=== PATIENT | female | born 1970 | race American Indian/Alaskan Native ===

== ENCOUNTER 2017-01-01 21:35 | Inpatient (IN) | payer MEDICAID ==
[2017-01-01 22:00] VITALS: BMI 27.3
[2017-01-01] MEDS ORDERED: Oxycodone/Acetaminophen 5/325 mg Tab PO STA (22:10)
[2017-01-01] MEDS ORDERED: Oxycodone/Acetaminophen 5/325 mg Tab ONE (22:16)
[2017-01-01] MEDS ORDERED: TDAP Vaccine 0.5 mL Syr IM ONE (22:26)
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
[2017-01-01] MEDS ORDERED: Lidocaine/Epi 1% 1:100000 20 ML IJ ONE (23:24)
[2017-01-01] MEDS ORDERED: Morphine 4 mg/ml ISec IVP STA (23:26)
[2017-01-01] MEDS ORDERED: ceFAZolin 1 gm in NS 1 GM/100 ML BAG IVPB STA (23:31)
[2017-01-02] MEDS ORDERED: Lidocaine/Epi 1% 1:100000 20 ML IJ STA (00:26)
[2017-01-02 00:39] LABS: ADD MANUAL DIFF? NO
[2017-01-02 00:50] LABS: BASO # 0.01 K/mm3 (0.0-2.0); BASO % 0.1 % (0.0-3.0); EOS # 0.1 (0.0-0.7); EOS % 0.7 % (1.5-5.0); GRAN # 5.85 (1.4-6.5); GRAN % 64.1 % (50.0-68.0); HEMATOCRIT 36.1 % (36.0-48.0); LYMPH # 2.5 (1.2-3.4); LYMPH % 27.5 % (22.0-35.0); MEAN CELL VOLUME 72.9 fL (80.0-105.0); MEAN CORPUSCULAR HEMOGLOBIN 25.9 pg (25.0-35.0); MEAN CORPUSCULAR HGB CONC 35.5 g/dl (31.0-37.0); MEAN PLATELET VOLUME 9.9 fl (7.0-11.0); MONO # 0.7 (0.1-0.6); MONO % 7.6 % (1.0-6.0); PLATELET COUNT 220 10^3/uL (120.0-450.0); RED CELL DISTRIBUTION WIDTH 15.6 % (11.5-14.5); WHITE BLOOD COUNT 9.1 10^3/ul (4.5-11.0)
[2017-01-02 00:53] LABS: ALKALINE PHOSPHATASE 86 U/L (38-133); ALT/SGPT 38 U/L (7-56); AST/SGOT 25 U/L (15-39); BILIRUBIN,TOTAL 0.4 mg/dL (0.2-1.3); BLOOD UREA NITROGEN 10 mg/dL (7-21); CALCIUM 9.1 mg/dL (8.4-10.5); CARBON DIOXIDE 22 mmol/L (21-33); CHLORIDE 108 mmol/L (98-107); GFR AFRICAN-AMERICAN > 60; GLUCOSE,RANDOM 94 mg/dL (70-110); POTASSIUM 3.7 mmol/L (3.6-5.0); SODIUM 137 mmol/L (132-148); TOTAL PROTEIN 7.7 g/dL (5.8-8.3)
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
[2017-01-02] MEDS ORDERED: Albuterol 0.5% Inhal Sol (2.5 mg/0.5 ml) UD IH PRN (01:34)
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
[2017-01-02] MEDS: ceFAZolin 1 gm in NS 1 GM/100 ML BAG IVPB SCH ×3 (06:38→23:08)
[2017-01-02 08:01] LABS: ADD MANUAL DIFF? NO
[2017-01-02 08:09] LABS: BASO # 0.02 K/mm3 (0.0-2.0); BASO % 0.3 % (0.0-3.0); EOS # 0.2 (0.0-0.7); EOS % 2.3 % (1.5-5.0); GRAN % 52.1 % (50.0-68.0); LYMPH # 2.5 (1.2-3.4); LYMPH % 34.5 % (22.0-35.0); MEAN CORPUSCULAR HEMOGLOBIN 25.8 pg (25.0-35.0); MEAN CORPUSCULAR HGB CONC 35.3 g/dl (31.0-37.0); MEAN PLATELET VOLUME 9.9 fl (7.0-11.0); MONO # 0.8 (0.1-0.6); MONO % 10.8 % (1.0-6.0); PLATELET COUNT 216 10^3/uL (120.0-450.0); RED CELL DISTRIBUTION WIDTH 15.6 % (11.5-14.5); WHITE BLOOD COUNT 7.3 10^3/ul (4.5-11.0)
[2017-01-02 08:21] LABS: BLOOD UREA NITROGEN 12 mg/dL (7-21); CALCIUM 8.8 mg/dL (8.4-10.5); CARBON DIOXIDE 22 mmol/L (21-33); CHLORIDE 107 mmol/L (95-110); GFR AFRICAN-AMERICAN > 60; GLUCOSE,RANDOM 94 mg/dL (70-110); POTASSIUM 3.4 mmol/L (3.6-5.0); SODIUM 137 mmol/L (132-148)
[2017-01-03] MEDS: ceFAZolin 1 gm in NS 1 GM/100 ML BAG IVPB SCH ×3 (05:50→22:29)
--- NOTE | 2017-01-03 07:23 | CP.PCM.PN ---
<Jillian Avelar - Last Filed: 01/03/17 10:50> Subjective - Date & Time of Evaluation Date of Evaluation: 01/03/17 Time of Evaluation: 09:30 - Subjective Subjective: Pt was seen and examined at bedside. No acute complaints at this time. No acute events overnight as per Nursing staff. Pt is tolerating diet, is ambulating and is moving bladder regulalrly. Pt has not had a bm yet however is passing flatus. Pt has pain associated with the left arm laceration, however it is under control under current pain management. Pt denied fever, chills, sob, chest pains, palpitations, abdominal pains, n/v/d/c or urinary symptoms. Objective - Vital Signs/Intake and Output Vital Signs (last 24 hours): Temp Pulse Resp BP Pulse Ox 98.6 F 62 19 123/79 98 01/02/17 18:00 01/02/17 18:00 01/02/17 18:00 01/02/17 18:00 01/02/17 18:00 Intake and Output: 01/03/17 01/03/17 06:59 18:59 Intake Total 420 Balance 420 - Medications Medications: Current Medications Acetaminophen (Tylenol 325mg Tab) 650 mg PO Q6H PRN PRN Reason: Fever >100.4 F Last Admin: 01/03/17 00:16 Dose: 650 mg Albuterol Sulfate (Albuterol 0.5% Inhal Opal (2.5 Mg/0.5 Ml) Ud) 2.5 mg IH [id number] PRN PRN Reason: SOB Famotidine (Pepcid) 20 mg PO BID [facility] [place] Last Admin: 01/02/17 18:17 Dose: 20 mg Cefazolin Sodium (Ancef 1gm In Ns) 1 gm in 100 mls @ 100 mls/hr IVPB Q8 [facility] [place] [place] Last Admin: 01/03/17 05:50 Dose: 100 mls/hr Ibuprofen (Motrin Tab) 600 mg PO Q6H PRN PRN Reason: Pain, Mild (1-3) Last Admin: 01/02/17 04:00 Dose: 600 mg Nicotine (Nicoderm Cq) 1 patch TD DAILY [facility] [place] Last Admin: 01/02/17 09:51 Dose: 1 patch Tramadol HCl (Ultram) 50 mg PO TID [facility] [place] Last Admin: 01/02/17 18:17 Dose: 50 mg - Labs Labs: 01/02/17 07:45 01/02/17 07:45 - Constitutional Appears: Well, No Acute Distress - Head Exam Head Exam: ATRAUMATIC, NORMAL INSPECTION, NORMOCEPHALIC - Eye Exam Eye Exam: EOMI, Normal appearance, PERRL Pupil Exam: NORMAL ACCOMODATION, PERRL - ENT Exam ENT Exam: Mucous Membranes Moist, Normal Exam - Neck Exam Neck Exam: Full ROM, Normal Inspection. absent: Lymphadenopathy - Respiratory Exam Respiratory Exam: Clear to Ausculation Bilateral, NORMAL BREATHING PATTERN - Cardiovascular Exam Cardiovascular Exam: REGULAR RHYTHM, +S1, +S2. absent: Murmur - GI/Abdominal Exam GI & Abdominal Exam: Soft, Normal Bowel Sounds. absent: Tenderness - Exam External exam: Lacerations (left arm, dressing CDI) - Extremities Exam Extremities Exam: Calf Tenderness - Back Exam Back Exam: NORMAL INSPECTION - Neurological Exam Neurological Exam: Alert, Awake, CN II-XII Intact, Normal Gait, Oriented x3 - Psychiatric Exam Psychiatric exam: Normal Affect, Normal Mood - Skin Skin Exam: Dry, Intact, Normal Color, Warm Assessment and Plan - Assessment and Plan (Free Text) Assessment: 46 F with PMHx of asthma admitted for a laceration of her left arm. Laceration of L Arm -Surgery, Dr. Garcia consulted, sutures in place, packing removed, dressing CDI, possible further sutures prior to dc - No motor or sensory deficits noted - Abx, cefazolin - analgesia Asthma -not in acute exacerbation -albuterol PRN Hypokalemia - Supplemented Tobacco abuse - counselled on smoking cessation - nicotine patch offered Proph -SCD, OOB encouraged -Pepcid -Regular Diet Seen reviewed and discussed with attending <Ru Rousseau - Last Filed: 01/03/17 16:50> Objective - Vital Signs/Intake and Output Vital Signs (last 24 hours): Temp Pulse Resp BP Pulse Ox 98.0 F 62 17 133/85 100 01/03/17 06:00 01/03/17 06:00 01/03/17 06:00 01/03/17 06:00 01/03/17 06:00 - Medications Medications: Current Medications Acetaminophen (Tylenol 325mg Tab) 650 mg PO Q6H PRN PRN Reason: Fever >100.4 F Last Admin: 01/03/17 00:16 Dose: 650 mg Albuterol Sulfate (Albuterol 0.5% Inhal Opal (2.5 Mg/0.5 Ml) Ud) 2.5 mg IH [id number] PRN PRN Reason: SOB Famotidine (Pepcid) 20 mg PO BID [facility] [place] Last Admin: 01/03/17 09:36 Dose: 20 mg Cefazolin Sodium (Ancef 1gm In Ns) 1 gm in 100 mls @ 100 mls/hr IVPB Q8 RADHA Last Admin: 01/03/17 13:47 Dose: 100 mls/hr Ibuprofen (Motrin Tab) 600 mg PO Q6H PRN PRN Reason: Pain, Mild (1-3) Last Admin: 01/02/17 04:00 Dose: 600 mg Nicotine (Nicoderm Cq) 1 patch TD DAILY [facility] [place] Last Admin: 01/03/17 09:37 Dose: 1 patch Tramadol HCl (Ultram) 50 mg PO TID [facility] [place] Last Admin: 01/03/17 13:47 Dose: 50 mg Attending/Attestation - Attestation I have personally seen and examined this patient.: Yes I have fully participated in the care of the patient.: Yes I have reviewed all pertinent clinical information, including history, physical exam and plan: Yes Notes (Text): I have seen and examined patient at bedside. Agree with the note above with the following additions/ exceptions: This is 46 year old female with laceration of left arm s/p wound closure. She needs to stay for IV antibiotic x1 more day and for possible further wound closure/ suture as per surgery team. Will change the patient status to inpatient. Tobacco cessation counselling provided. Her asthma is stable. Upon discharge patient will follow up with Dr Reina. Dr Ru Rousseau
--- NOTE | 2017-01-03 08:07 | CP.PCM.PN ---
Subjective - Date & Time of Evaluation Date of Evaluation: 01/03/17 Time of Evaluation: 08:04 - Subjective Subjective: Surgery: Dr. Garcia Pt seen and examined. No acute overnight events. States her arm is feeling better and pain is well controlled at this time. She is able to move her arm around with less pain today. Tolerating diet. Denies N/v, F/C. Objective - Vital Signs/Intake and Output Vital Signs (last 24 hours): Temp Pulse Resp BP Pulse Ox 98.6 F 62 19 123/79 98 01/02/17 18:00 01/02/17 18:00 01/02/17 18:00 01/02/17 18:00 01/02/17 18:00 Intake and Output: 01/03/17 01/03/17 06:59 18:59 Intake Total 420 Balance 420 - Medications Medications: Current Medications Acetaminophen (Tylenol 325mg Tab) 650 mg PO Q6H PRN PRN Reason: Fever >100.4 F Last Admin: 01/03/17 00:16 Dose: 650 mg Albuterol Sulfate (Albuterol 0.5% Inhal Opal (2.5 Mg/0.5 Ml) Ud) 2.5 mg IH [id number] PRN PRN Reason: SOB Famotidine (Pepcid) 20 mg PO BID [facility] Last Admin: 01/02/17 18:17 Dose: 20 mg Cefazolin Sodium (Ancef 1gm In Ns) 1 gm in 100 mls @ 100 mls/hr IVPB Q8 [facility] Last Admin: 01/03/17 05:50 Dose: 100 mls/hr Ibuprofen (Motrin Tab) 600 mg PO Q6H PRN PRN Reason: Pain, Mild (1-3) Last Admin: 01/02/17 04:00 Dose: 600 mg Nicotine (Nicoderm Cq) 1 patch TD DAILY [facility] Last Admin: 01/02/17 09:51 Dose: 1 patch Tramadol HCl (Ultram) 50 mg PO TID [facility] Last Admin: 01/02/17 18:17 Dose: 50 mg - Labs Labs: 01/02/17 07:45 01/02/17 07:45 - Constitutional Appears: Well, No Acute Distress - Head Exam Head Exam: ATRAUMATIC, NORMOCEPHALIC - ENT Exam ENT Exam: Mucous Membranes Moist - Respiratory Exam Respiratory Exam: NORMAL BREATHING PATTERN - Cardiovascular Exam Cardiovascular Exam: RRR - GI/Abdominal Exam GI & Abdominal Exam: Soft. absent: Tenderness - Extremities Exam Additional comments: Left arm laceration with sutures; C/D/I. Packing removed - Neurological Exam Neurological Exam: Alert, Awake, Oriented x3 - Skin Skin Exam: Dry, Warm Assessment and Plan - Assessment and Plan (Free Text) Assessment: 46F with Left arm laceration s/p suture placement in ER; POD#2 Plan: - Continue IV ABX - packing removed and new dressing applied - may need more sutures for better closure - d/w Dr. Jose Sanchez, PGY-2 Surgery
[2017-01-03 08:59] LABS: BLOOD UREA NITROGEN 13 mg/dL (7-21); CALCIUM 8.5 mg/dL (8.4-10.5); CARBON DIOXIDE 22 mmol/L (21-33); CHLORIDE 108 mmol/L (98-107); GFR AFRICAN-AMERICAN > 60; GLUCOSE,RANDOM 89 mg/dL (70-110); POTASSIUM 3.4 mmol/L (3.6-5.0); SODIUM 137 mmol/L (132-148)
[2017-01-03 09:15] LABS: HEMATOCRIT 34.3 % (36.0-48.0); MEAN CELL VOLUME 72.8 fL (80.0-105.0); MEAN CORPUSCULAR HEMOGLOBIN 25.3 pg (25.0-35.0); MEAN CORPUSCULAR HGB CONC 34.7 g/dl (31.0-37.0); MEAN PLATELET VOLUME 10.1 fl (7.0-11.0); RED CELL DISTRIBUTION WIDTH 15.4 % (11.5-14.5); WHITE BLOOD COUNT 6.5 10^3/ul (4.5-11.0)
[2017-01-03] MEDS ORDERED: Potassium Chloride 20 mEq ER Tab PO STA (09:28)
[2017-01-04] MEDS: ceFAZolin 1 gm in NS 1 GM/100 ML BAG IVPB SCH ×3 (05:50→17:33)
--- NOTE | 2017-01-04 11:42 | CP.PCM.PN ---
Subjective - Date & Time of Evaluation Date of Evaluation: 01/04/17 Time of Evaluation: 11:38 - Subjective Subjective: Surgery: Dr. Garcia Patient doing well. She denies f/c/n/v. She does complain of pain to the left arm as expected. No acute events overnight. Objective - Vital Signs/Intake and Output Vital Signs (last 24 hours): Temp Pulse Resp BP Pulse Ox 97.9 F 69 18 161/103 H 100 01/04/17 08:38 01/04/17 08:38 01/04/17 08:38 01/04/17 08:38 01/04/17 08:38 Intake and Output: 01/04/17 01/04/17 06:59 18:59 Intake Total 540 Balance 540 - Medications Medications: Current Medications Acetaminophen (Tylenol 325mg Tab) 650 mg PO Q6H PRN PRN Reason: Fever >100.4 F Last Admin: 01/03/17 00:16 Dose: 650 mg Albuterol Sulfate (Albuterol 0.5% Inhal Opal (2.5 Mg/0.5 Ml) Ud) 2.5 mg IH [id number] PRN PRN Reason: SOB Famotidine (Pepcid) 20 mg PO BID [facility] Last Admin: 01/04/17 09:20 Dose: 20 mg Cefazolin Sodium (Ancef 1gm In Ns) 1 gm in 100 mls @ 100 mls/hr IVPB Q8 [facility] Last Admin: 01/04/17 05:50 Dose: 100 mls/hr Ibuprofen (Motrin Tab) 600 mg PO Q6H PRN PRN Reason: Pain, Mild (1-3) Last Admin: 01/03/17 23:49 Dose: 600 mg Nicotine (Nicoderm Cq) 1 patch TD DAILY [facility] Last Admin: 01/04/17 09:20 Dose: 1 patch Tramadol HCl (Ultram) 50 mg PO Q8H PRN PRN Reason: Pain, moderate (4-7) Last Admin: 01/04/17 06:41 Dose: 50 mg - Constitutional Appears: Well, Non-toxic, No Acute Distress - Head Exam Head Exam: ATRAUMATIC, NORMOCEPHALIC - Eye Exam Eye Exam: EOMI, Normal appearance - ENT Exam ENT Exam: Mucous Membranes Moist - Respiratory Exam Respiratory Exam: NORMAL BREATHING PATTERN. absent: Respiratory Distress - Cardiovascular Exam Cardiovascular Exam: REGULAR RHYTHM. absent: Tachycardia - Extremities Exam Additional comments: Left arm laceration closed w/ interrupted vertical mattress sutures, inferior skin flap w/ minimal necrotic tissue. Upper portion of the arm w/ ecchymosis and edema extending to elbow. Assessment and Plan - Assessment and Plan (Free Text) Assessment: 46 y/o female w/ degloving laceration to the upper left arm s/p primary closure Plan: -will excise necrotic tissue -arm needs elevation and warm compress -needs at least 1 more day of IV antibiotics -will attempt to pack inferior flap to prevent hematoma -seen and examined w/ Dr. Jose Scott PGY1
[2017-01-04] MEDS ORDERED: Morphine 2 mg/ml ISec IVP STA (11:50)
[2017-01-04] MEDS ORDERED: Lidocaine 1% Inj (20ml) IJ STA (11:51)
--- NOTE | 2017-01-04 13:24 | CP.PCM.PN ---
<Tobin Longo - Last Filed: 01/04/17 13:18> Subjective - Date & Time of Evaluation Date of Evaluation: 01/04/17 Time of Evaluation: 13:18 - Subjective Subjective: Patient seen and examined. Left upper arm is cleaned and dressed. The patient is continued on IV abx. She has no complaints at this time. She is afebrile. Objective - Vital Signs/Intake and Output Vital Signs (last 24 hours): Temp Pulse Resp BP Pulse Ox 97.9 F 69 18 161/103 H 100 01/04/17 08:38 01/04/17 08:38 01/04/17 08:38 01/04/17 08:38 01/04/17 08:38 Intake and Output: 01/04/17 01/04/17 06:59 18:59 Intake Total 540 Balance 540 - Medications Medications: Current Medications Acetaminophen (Tylenol 325mg Tab) 650 mg PO Q6H PRN PRN Reason: Fever >100.4 F Last Admin: 01/03/17 00:16 Dose: 650 mg Albuterol Sulfate (Albuterol 0.5% Inhal Opal (2.5 Mg/0.5 Ml) Ud) 2.5 mg IH [id number] PRN PRN Reason: SOB Famotidine (Pepcid) 20 mg PO BID [facility] Last Admin: 01/04/17 09:20 Dose: 20 mg Cefazolin Sodium (Ancef 1gm In Ns) 1 gm in 100 mls @ 100 mls/hr IVPB Q8 [facility] Last Admin: 01/04/17 05:50 Dose: 100 mls/hr Ibuprofen (Motrin Tab) 600 mg PO Q6H PRN PRN Reason: Pain, Mild (1-3) Last Admin: 01/03/17 23:49 Dose: 600 mg Nicotine (Nicoderm Cq) 1 patch TD DAILY [facility] Last Admin: 01/04/17 09:20 Dose: 1 patch Silver Sulfadiazine (Silvadene 1% 20 Gm) 1 ea TOP BID [facility] Tramadol HCl (Ultram) 50 mg PO Q8H PRN PRN Reason: Pain, moderate (4-7) Last Admin: 01/04/17 06:41 Dose: 50 mg - Constitutional Appears: Non-toxic, No Acute Distress - Head Exam Head Exam: ATRAUMATIC, NORMOCEPHALIC - Eye Exam Eye Exam: Periorbital tenderness - ENT Exam ENT Exam: Mucous Membranes Moist - Neck Exam Neck Exam: Full ROM, Normal Inspection - Respiratory Exam Respiratory Exam: Clear to Ausculation Bilateral. absent: Rales, Rhonchi, Wheezes - Cardiovascular Exam Cardiovascular Exam: REGULAR RHYTHM, +S1, +S2 - GI/Abdominal Exam GI & Abdominal Exam: Soft. absent: Distended, Tenderness - Extremities Exam Extremities Exam: Full ROM. absent: Pedal Edema Additional comments: left upper arm cleaned and dressed. - Neurological Exam Neurological Exam: Alert, Awake, Oriented x3 - Psychiatric Exam Psychiatric exam: Normal Affect, Normal Mood - Skin Skin Exam: Dry, Normal Color, Warm Assessment and Plan - Assessment and Plan (Free Text) Assessment: 46 y/o female with de-gloving laceration to left upper arm s/p closure complicated by continued edema and inflammation. Surgery is following and managing the wound. IV abx continued. left arm wound as above - continue surgical managemen t - medically stable - continue abx per surgery hx asthma - respiratory status stable - continue home meds PPX scd's <Ru Rousseau B - Last Filed: 01/04/17 17:09> Objective - Vital Signs/Intake and Output Vital Signs (last 24 hours): Temp Pulse Resp BP Pulse Ox 97.9 F 69 18 161/103 H 100 01/04/17 08:38 01/04/17 08:38 01/04/17 08:38 01/04/17 08:38 01/04/17 08:38 Intake and Output: 01/04/17 01/04/17 06:59 18:59 Intake Total 540 780 Balance 540 780 - Medications Medications: Current Medications Acetaminophen (Tylenol 325mg Tab) 650 mg PO Q6H PRN PRN Reason: Fever >100.4 F Last Admin: 01/03/17 00:16 Dose: 650 mg Albuterol Sulfate (Albuterol 0.5% Inhal Opal (2.5 Mg/0.5 Ml) Ud) 2.5 mg IH [id number] PRN PRN Reason: SOB Famotidine (Pepcid) 20 mg PO BID [facility] Last Admin: 01/04/17 09:20 Dose: 20 mg Cefazolin Sodium (Ancef 1gm In Ns) 1 gm in 100 mls @ 100 mls/hr IVPB Q8 [facility] Last Admin: 01/04/17 14:14 Dose: 100 mls/hr Ibuprofen (Motrin Tab) 600 mg PO Q6H PRN PRN Reason: Pain, Mild (1-3) Last Admin: 01/03/17 23:49 Dose: 600 mg Nicotine (Nicoderm Cq) 1 patch TD DAILY [facility] Last Admin: 01/04/17 09:20 Dose: 1 patch Silver Sulfadiazine (Silvadene 1% 20 Gm) 1 ea TOP BID [facility] Tramadol HCl (Ultram) 50 mg PO Q8H PRN PRN Reason: Pain, moderate (4-7) Last Admin: 01/04/17 06:41 Dose: 50 mg Attending/Attestation - Attestation I have personally seen and examined this patient.: Yes I have fully participated in the care of the patient.: Yes I have reviewed all pertinent clinical information, including history, physical exam and plan: Yes Notes (Text): I have seen and examined patient at bedside. Agree with the note above with the following additions/ exceptions: This is 46 year old female with laceration of left arm s/p wound closure. She needs to stay for IV antibiotic and for possible further wound closure/ suture as per surgery team. Possible dc in am. Tobacco cessation counselling provided. Her asthma is stable. Upon discharge patient will follow up with Dr Reina. Dr Ru Rousseau
[2017-01-04] MEDS: Silver Sulfadiazine 1% Cream (20 gm) TOP SCH (17:26)
[2017-01-04 19:01] VITALS: RESP 20
--- NOTE | 2017-01-05 08:49 | CP.PCM.PN ---
Subjective - Date & Time of Evaluation Date of Evaluation: 01/05/17 Time of Evaluation: 08:46 - Subjective Subjective: Surgery: Dr. Garcia Patient feeling very well this am. Patient states she is ready to go home. She has been elevating her arm. She believes the swelling has significantly improved. She denies f/c/n/v. She is tolerating diet. Objective - Vital Signs/Intake and Output Vital Signs (last 24 hours): Temp Pulse Resp BP Pulse Ox 98.5 F 66 20 140/93 H 100 01/04/17 18:00 01/04/17 18:00 01/04/17 18:00 01/04/17 18:00 01/04/17 08:38 Intake and Output: 01/05/17 01/05/17 06:59 18:59 Intake Total 600 Balance 600 - Medications Medications: Current Medications Acetaminophen (Tylenol 325mg Tab) 650 mg PO Q6H PRN PRN Reason: Fever >100.4 F Last Admin: 01/03/17 00:16 Dose: 650 mg Albuterol Sulfate (Albuterol 0.5% Inhal Opal (2.5 Mg/0.5 Ml) Ud) 2.5 mg IH [id number] PRN PRN Reason: SOB Famotidine (Pepcid) 20 mg PO BID [facility] Last Admin: 01/04/17 17:31 Dose: 20 mg Ibuprofen (Motrin Tab) 600 mg PO Q6H PRN PRN Reason: Pain, Mild (1-3) Last Admin: 01/04/17 20:36 Dose: 600 mg Nicotine (Nicoderm Cq) 1 patch TD DAILY [facility] Last Admin: 01/04/17 09:20 Dose: 1 patch Silver Sulfadiazine (Silvadene 1% 20 Gm) 1 ea TOP BID [facility] Last Admin: 01/04/17 17:26 Dose: 1 gm Tramadol HCl (Ultram) 50 mg PO Q8H PRN PRN Reason: Pain, moderate (4-7) Last Admin: 01/05/17 03:08 Dose: 50 mg - Constitutional Appears: Well, Non-toxic, No Acute Distress - Head Exam Head Exam: ATRAUMATIC, NORMOCEPHALIC - Eye Exam Eye Exam: EOMI, Normal appearance - ENT Exam ENT Exam: Mucous Membranes Moist - Respiratory Exam Respiratory Exam: NORMAL BREATHING PATTERN. absent: Respiratory Distress - Cardiovascular Exam Cardiovascular Exam: REGULAR RHYTHM. absent: Tachycardia - Extremities Exam Additional comments: Left arm swelling improved, skin edges appear healthy and well approximated. packing in inferior portion of wound. SA fluid drainage noted. - Skin Additional comments: as above Assessment and Plan - Assessment and Plan (Free Text) Assessment: 46 y/o female w/ de-gloving laceration to the upper left arm s/p primary closure Plan: -packing needs to be changed today prior to d/c -cont to wear MOHAMUD bandage -ok to discharge home on po Augmentin for 7 days -need to follow up in [facility] in 2 weeks for stitch removal -keep wound clean and dry, ok to shower w/ soap and water -cont silvadene to blistered skin -keep arm elevated w/ possible -tylenol or motrin for pain -d/w Dr. Jose LEEhesham PGY1
[2017-01-05 09:01] VITALS: BP 130/91; PULSE 64; TEMP 97.8; O2SAT 98
[2017-01-05] MEDS: Silver Sulfadiazine 1% Cream (20 gm) TOP SCH (09:15)
[2017-01-05] MEDS ORDERED: Potassium Chloride 20 mEq ER Tab PO STA (09:20)
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
== END 2017-01-05 12:36 | disposition home or self-care (01) | DRG 269 ==
LOC: ED 21:35 → ERH 01-02 00:05 → 3RNO 01-02 02:02 → OBSVTOIN 01-03 10:49
PROVIDERS: ADMIT Hospitalist; ATTEND Hospitalist
PROC: 3E0234Z Introduction of Serum, Toxoid and Vaccine into Muscle, Percutaneous Approach (ICD-10-PCS; 2017-01-01)
PROC: 0XQ9XZZ Repair Left Upper Arm, External Approach (ICD-10-PCS; principal; 2017-01-02)
DX: S41.112A Laceration without foreign body of left upper arm, initial encounter (principal); Y04.0XXA Assault by unarmed brawl or fight, initial encounter; E87.6 Hypokalemia; J45.909 Unspecified asthma, uncomplicated; F17.210 Nicotine dependence, cigarettes, uncomplicated; Y93.89 Activity, other specified; Y92.89 Other specified places as the place of occurrence of the external cause; Y99.8 Other external cause status; Z23 Encounter for immunization